=== PATIENT | female | born 1990 | race Caucasian/White ===

== ENCOUNTER 2017-03-08 21:46 | Emergency (ER) | payer SELFPAY ==
[~2017-03-08] VITALS: Ht 149.9 cm; Wt 63.0 kg
[2017-03-08 21:50] VITALS: Ht 149.9 cm; Wt 63.0 kg
[2017-03-08] MEDS ORDERED: SOD CHLORIDE 0.9% 1,000 ML IV STA (22:25)
[2017-03-08] MEDS ORDERED: VANCOMYCIN 1 GM in SOD CHLORIDE 0.9% 250 ML IVPB ONE (22:30)
[2017-03-08] MEDS ORDERED: SULF1TAB31 PO (22:41)
[2017-03-08] MEDS ORDERED: CLIN-73 PO (22:41)
--- NOTE | 2017-03-08 22:44 | ERD ---
ER Documentation Chief Complaint Chief Complaint c/o right foot swelling x 2 days. HPI 26-year-old female presents with redness swelling and pain to her right foot that she has had for 2 days. Denies fever. Denies bleeding or drainage. The area is spreading. She is an IV drug user. ROS All systems reviewed and are negative except as per history of present illness. Medications Home Meds Active Scripts Clindamycin Hcl* (Clindamycin Hcl*) 300 Mg Capsule, 300 MG PO TID for 10 Days, CAP Prov:ALINA MENARD PA-C 03/08/17 Sulfamethoxazole/Trimethoprim* (Bactrim Ds* Tablet) 1 Each Tablet, 1 TAB PO BID , #14 TAB Prov:ALINA MENARD PA-C 03/08/17 Allergies Allergies: Coded Allergies: No Known Drug Allergies (Verified Allergy, Unknown, 03/08/17) PMhx/Soc Medical and Surgical Hx: pt denies Medical Hx, pt denies Surgical Hx Hx Alcohol Use: No Hx Substance Use: No Hx Tobacco Use: No Smoking Status: Never smoker FmHx Family History: No diabetes Physical Exam Vitals Vital Signs Date Time Temp Pulse Resp B/P Pulse Ox O2 Delivery O2 Flow Rate FiO2 03/08/17 21:50 99.0 100 18 103/71 18 Physical Exam Const: [] Head: Atraumatic Eyes: Normal Conjunctiva ENT: Normal External Ears, Nose and Mouth. Neck: Full range of motion..~ No meningismus. Resp: Clear to auscultation bilaterally Cardio: Regular rate and rhythm, no murmurs Back: Right foot dorsal surface is erythematous and edematous with warmth and streaking approximately 6 inches above the ankle Results 24 hrs Current Medications Medications (Trade) Dose Ordered Sig/Joslyn Route PRN Reason Start Time Stop Time Status Last Admin Dose Admin Vancomycin HCl 1 gm/Sodium Chloride 250 ml @ 125 mls/hr ONCE ONCE IVPB 03/08/17 22:30 03/08/17 22:41 DC Sodium Chloride (NS) 1,000 ml @ 1,000 mls/hr Q1H STAT IV 03/08/17 22:25 03/08/17 22:41 DC Procedures/MDM 26-year-old female presents with cellulitis in her left foot. It is markedly swollen. She has a temperature 99 and pulse of 100. I wanted to get some labs and give her IV antibiotics however she declined and did not want to do this. Both myself and Dr. mackenzie examined the patient and explained her the risks of this. We decided to send her home with clindamycin and Bactrim. I told her she needs to have a low threshold to return back to the emergency room including worsening of symptoms or any fever or any other concerns. Patient counseled regarding my diagnostic impression and care plan. Prior to discharge all questions answered. Pt agrees with treatment plan and understands strict return precautions. Pt is instructed to follow up with primary care provider within 24-48 hours. Precautionary instructions provided including instructions to return to the ER if not improving or for any worsening or changing symptoms or concerns. Departure Diagnosis: Primary Impression: Cellulitis Condition: Stable Patient Instructions: Cellulitis Additional Instructions: Call your primary care doctor TOMORROW for an appointment during the next 1-2 days.See the doctor sooner or return here if your condition worsens before your appointment time. ALINA MENARD PA-C Mar 08, 2017 22:44
== END 2017-03-08 23:10 | disposition home or self-care (01) ==
LOC: FTE 21:46
DX: L03.116 Cellulitis of left lower limb (principal)
CPT/HCPCS: J3370; J7030; J7050